=== PATIENT | male | born 1995 | race Caucasian/White ===

== ENCOUNTER 2016-11-18 19:24 | Emergency (ER) | payer MEDICAID, OTHER ==
[~2016-11-18] VITALS: Ht 170.2 cm; Wt 68.0 kg
[2016-11-18 19:25] VITALS: BP 132/83; PULSE 94; RESP 14; TEMP 98.2; O2SAT 98
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
== END 2016-11-18 21:40 | disposition home or self-care (01) ==
LOC: NEPB 19:24
DX: S80.12XA Contusion of left lower leg, initial encounter (principal); V09.20XA Pedestrian injured in traffic accident involving unspecified motor vehicles, initial encounter; Y93.89 Activity, other specified; Y92.410 Unspecified street and highway as the place of occurrence of the external cause
CPT/HCPCS: 73590; 99283; E0113

== ENCOUNTER 2016-11-22 18:31 | Emergency (ER) | payer MEDICAID, OTHER ==
[~2016-11-22] VITALS: Ht 170.2 cm; Wt 74.0 kg
[2016-11-22 18:33] VITALS: BP 147/79; PULSE 116; RESP 20; TEMP 98; O2SAT 97
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
[2016-11-22] MEDS ORDERED: CYCL1TAB29 PO (19:28)
[2016-11-22] MEDS ORDERED: ACETAMINOPHEN 500 MG CPLT PO ONE (19:30)
[2016-11-22] MEDS ORDERED: CYCLOBENZAPRINE HCL 10 MG TAB PO ONE (19:30)
== END 2016-11-22 20:09 | disposition home or self-care (01) ==
LOC: NEPB 18:31
DX: S80.12XA Contusion of left lower leg, initial encounter (principal); J45.909 Unspecified asthma, uncomplicated; V89.2XXD Person injured in unspecified motor-vehicle accident, traffic, subsequent encounter
CPT/HCPCS: 99283

== ENCOUNTER 2016-12-28 15:12 | Emergency (ER) | payer MEDICAID ==
[~2016-12-28 15:12] MED LIST: CYCL1TAB29 PO
[2016-12-28 15:13] VITALS: BP 137/79; PULSE 97; RESP 16; TEMP 98.4; O2SAT 97
== END 2016-12-28 17:05 | disposition left against medical advice (07) ==
LOC: NED 15:12
DX: Z53.21 Procedure and treatment not carried out due to patient leaving prior to being seen by health care provider (principal)
CPT/HCPCS: 99281

== ENCOUNTER 2017-01-04 19:26 | Emergency (ER) | payer MEDICAID ==
[~2017-01-04] VITALS: Ht 170.2 cm; Wt 72.0 kg
[2017-01-04] MEDS ORDERED: SODIUM CHLOR 0.9% 1000 ML INJ 1,000 ML IV SCH (19:29)
[2017-01-04 19:30] VITALS: BP 138/90; PULSE 98; RESP 16; TEMP 98.4; O2SAT 98
[2017-01-04] MEDS ORDERED: traMADol HCL 50 MG TAB PO ONE (19:30)
[2017-01-04] MEDS ORDERED: METOCLOPRAMIDE HCL 10 MG/2 ML VIAL IV PUSH ONE (19:30)
[2017-01-04] MEDS ORDERED: SODIUM CHLORIDE 0.9% FLUSH 5 ML FLUSH IVF PRN (19:30)
[2017-01-04 19:34] VITALS: O2SAT 98
[2017-01-04 20:01] LABS: AUTOMATED NEUTROPHIL # 7.5 TH/MM3 (1.8-7.7); BASOPHIL % 0.2 % (0.0-2.0); EOSINOPHIL # 0.4 TH/MM3 (0-0.4); EOSINOPHIL % 3.6 % (0.0-4.0); HEMATOCRIT 46.3 % (39.0-51.0); HEMO FLAGS DIFF FINAL; LYMPH % 23.8 % (9.0-44.0); LYMPHOCYTE # 2.7 TH/MM3 (1.0-4.8); MEAN CELL VOLUME 84.2 FL (80.0-100.0); MEAN CORPUSCULAR HEMOGLOBIN 28.7 PG (27.0-34.0); MEAN CORPUSCULAR HGB CONC 34.1 % (32.0-36.0); MONO % 6.8 % (0.0-8.0); NEUT % 65.6 % (16.0-70.0); PLATELET COUNT 177 TH/MM3 (150-450); RED CELL DISTRIBUTION WIDTH 13.4 % (11.6-17.2); WHITE BLOOD COUNT 11.5 TH/MM3 (4.0-11.0)
[2017-01-04 20:13] LABS: ALT (GPT) 18 U/L (9-52); ANION GAP 8 MEQ/L (5-15); AST (GOT) 12 U/L (15-39); BICARBONATE 28.3 MEQ/L (21.0-32.0); BLOOD UREA NITROGEN 14 MG/DL (7-18); CHLORIDE 104 MEQ/L (98-107); GLOMERULAR FILTRATION RATE 99 ML/MIN (>89); POTASSIUM 3.5 MEQ/L (3.5-5.1); SODIUM (NA) 140 MEQ/L (136-145)
[2017-01-04 20:17] LABS: APTT (PATIENT) 28.7 SEC (24.3-30.1)
[2017-01-04 20:24] LABS: ACETAMINOPHEN 2.6 MCG/ML (10.0-30.0); ALKALINE PHOSPHATASE 76 U/L (45-117); TOTAL BILIRUBIN ADULT 0.5 MG/DL (0.2-1.0)
[2017-01-04 20:43] LABS: AMPHETAMINE, URINE NEG (NEG); BARBITURATES, URINE NEG (NEG); COCAINE, URINE NEG (NEG)
[2017-01-04 20:59] LABS: BLOOD, URINE NEG (NEG); GLUCOSE,URINE NEG (NEG); KETONE, URINE NEG (NEG); MUCUS URINE FEW /lpf (OCC); NITRITE,URINE NEG (NEG); PH, URINE 5.5 (5.0-8.5); URINE COLOR YELLOW (YELLW/STRAW)
[2017-01-04 21:04] LABS: COMMENT (UR) CATH-CULT NOT IND; CULTURE IF INDICATED CATH CULTURE NOT IND
--- NOTE | 2017-01-04 21:09 | RADRPT ---
EXAM DATE/TIME: 01/04/2017 20:55 [facility] COMPARISON: No previous studies available for comparison. INDICATIONS : Altered mental status. RADIATION DOSE: 52.63 CTDIvol (mGy) MEDICAL HISTORY : Non-responsive. SURGICAL HISTORY : Non-responsive. ENCOUNTER: Initial ACUITY: 1 day PAIN SCALE: Non-responsive LOCATION: cranial TECHNIQUE: Multiple contiguous axial images were obtained of the head. Using automated exposure control and adj ustment of the mA and/or kV according to patient size, radiation dose was kept as low as reasonably a chievable to obtain optimal diagnostic quality images. FINDINGS: CEREBRUM: The ventricles are normal for age. No evidence of midline shift, mass lesion, hemorrhage or acute in farction. No extra-axial fluid collections are seen. POSTERIOR FOSSA: The cerebellum and brainstem are intact. The 4th ventricle is midline. The cerebellopontine angle i s unremarkable. EXTRACRANIAL: The visualized portion of the orbits is intact. There is mild mucosal thickening in the ethmoidal air cells and maxillary sinuses. SKULL: The calvaria is intact. No evidence of skull fracture. CONCLUSION: Unremarkable exam. Brian Patirck MD on January 04, 2017 at 21:06 Board Certified Radiologist. This report was verified electronically.
[2017-01-04 21:13] VITALS: BP 111/59; PULSE 87; RESP 18; O2SAT 98
--- NOTE | 2017-01-04 21:46 | PD ---
HPI Chief Complaint: Headache Time Seen by Provider: 19:29 Travel History International Travel<30 days: No Contact w/Intl Traveler<30days: No Traveled to known affect area: No History of Present Illness HPI 21-year-old male brought straight back to a room apparently for being unresponsive. When I walked into the room the patient is awake and alert. He is complaining of a headache. He denies illicit drug use. Headache is frontal. He has history of blindness in his right eye. Headache is associated with photophobia. Not thunderclap in onset. No fevers or recent illness. PFSH Past Medical History ADD: Yes ADHD: Yes Asthma: Yes Bipolar Disorder: Yes Diminished Hearing: No Respiratory: Yes (ASTHMA) Immunizations Current: Yes Influenza Vaccination: Yes Past Surgical History Eye Surgery: Yes ( AN INFANT) Tonsillectomy: Yes Social History Alcohol Use: No Tobacco Use: No (VAPES) Substance Use: No Allergies-Medications (Allergen,Severity, Reaction): Coded Allergies: Blueberry (Verified Allergy, Severe, THROAT SWELLING, 01/04/17) Dust (Verified Allergy, Severe, Shortness of Breath, 01/04/17) Ibuprofen (Verified Allergy, Unknown, 01/04/17) [place] (Verified Allergy, Unknown, 01/04/17) Soy Milk (Verified Allergy, Unknown, allergy testing, 01/04/17) Reported Meds & Prescriptions Reported Meds & Active Scripts Active Flexeril (Cyclobenzaprine HCl) 10 Mg Tab 10 Mg PO TID Review of Systems Except as stated in HPI: all other systems reviewed are Neg Physical Exam Narrative GENERAL: Well-developed, well-nourished, awake, alert, covering eyes. SKIN: Warm and dry. HEAD: Atraumatic. Normocephalic. EYES: Pupils equal and round. No wandering gaze. ENT: Mucous membranes pink and moist. NECK: Trachea midline. No JVD. No nuchal rigidity. CARDIOVASCULAR: Regular rate and rhythm. RESPIRATORY: No accessory muscle use. Clear to auscultation. Breath sounds equal bilaterally. GASTROINTESTINAL: Abdomen soft, non-tender, nondistended. MUSCULOSKELETAL: No obvious deformities. No clubbing. No cyanosis. No edema. NEUROLOGICAL: Awake and alert. No obvious cranial nerve deficits. Motor grossly within normal limits. Normal speech. PSYCHIATRIC: Appropriate mood and affect; insight and judgment normal. Data Data Last Documented VS Vital Signs Date Time Temp Pulse Resp B/P Pulse Ox O2 Delivery O2 Flow Rate FiO2 01/04/17 21:13 87 18 111/59 98 Room Air 01/04/17 19:30 98.4 Orders Electrocardiogram (01/04/17 19:29) Ammonia (01/04/17 19:29) Complete Blood Count With Diff (01/04/17:29) Comprehensive Metabolic Panel (01/04/17:29) Act Partial Throm Time (Ptt) (01/04/17:29) Troponin I (01/04/17:29) Thyroid Stimulating Hormone (01/04/17:29) Urinalysis - C+S If Indicated (01/04/17:29) Blood Glucose (01/04/17:) Ecg Monitoring (01/04/17:29) Iv Access Insert/Monitor (01/04/17:29) Oximetry (01/04/17 19:29) Sodium Chloride 0.9% Flush (Ns Flush) (01/04/17 19:30) Sodium Chlor 0.9% 1000 Ml Inj (Ns 1000 M (01/04/17 19:29) Drug Screen, Random Urine (01/04/17:29) Alcohol (Ethanol) (01/04/17 19:29) Salicylates (Aspirin) (01/04/17 19:29) Tylenol (Acetaminophen) (01/04/17 19:29) Metoclopramide Inj (Reglan Inj) (01/04/17 19:30) Tramadol (Ultram) (01/04/17 19:30) Ct Brain W/O Iv Contrast(Rout) (01/04/17 ) Labs Laboratory Tests Test 01/04/17 01/04/17 19:35 20:02 White Blood Count 11.5 TH/MM3 Red Blood Count 5.50 MIL/MM3 Hemoglobin 15.8 GM/DL Hematocrit 46.3 % Mean Corpuscular Volume 84.2 FL Mean Corpuscular Hemoglobin 28.7 PG Mean Corpuscular Hemoglobin 34.1 % Concent Red Cell Distribution Width 13.4 % Platelet Count 177 TH/MM3 Mean Platelet Volume 9.4 FL Neutrophils (%) (Auto) 65.6 % Lymphocytes (%) (Auto) 23.8 % Monocytes (%) (Auto) 6.8 % Eosinophils (%) (Auto) 3.6 % Basophils (%) (Auto) 0.2 % Neutrophils # (Auto) 7.5 TH/MM3 Lymphocytes # (Auto) 2.7 TH/MM3 Monocytes # (Auto) 0.8 TH/MM3 Eosinophils # (Auto) 0.4 TH/MM3 Basophils # (Auto) 0.0 TH/MM3 CBC Comment DIFF FINAL Differential Comment Activated Partial 28.7 SEC Thromboplast Time Sodium Level 140 MEQ/L Potassium Level 3.5 MEQ/L Chloride Level 104 MEQ/L Carbon Dioxide Level 28.3 MEQ/L Anion Gap 8 MEQ/L Blood Urea Nitrogen 14 MG/DL Creatinine 0.97 MG/DL Estimat Glomerular Filtration 99 ML/MIN Rate Random Glucose 119 MG/DL Calcium Level 8.6 MG/DL Total Bilirubin 0.5 MG/DL Aspartate Amino Transf 12 U/L (AST/SGOT) Alanine Aminotransferase 18 U/L (ALT/SGPT) Alkaline Phosphatase 76 U/L Ammonia 38 MCMOL/L Troponin I LESS THAN 0.02 NG/ML Total Protein 7.4 GM/DL Albumin 4.3 GM/DL Thyroid Stimulating Hormone 0.906 uIU/ML 3rd Gen Salicylates Level LESS THAN 1.7 MG/DL Acetaminophen Level 2.6 MCG/ML Ethyl Alcohol Level LESS THAN 3 MG/DL Urine Color YELLOW Urine Turbidity CLEAR Urine pH 5.5 Urine Specific [place] 1.015 Urine Protein NEG mg/dL Urine Glucose (UA) NEG mg/dL Urine Ketones NEG mg/dL Urine Occult Blood NEG Urine Nitrite NEG Urine Bilirubin NEG Urine Urobilinogen LESS THAN 2.0 MG/DL Urine Leukocyte Esterase NEG Urine Mucus FEW /lpf Microscopic Urinalysis Comment CATH-CULT NOT IND Urine Opiates Screen NEG Urine Barbiturates Screen NEG Urine Amphetamines Screen NEG Urine Benzodiazepines Screen NEG Urine Cocaine Screen NEG Urine Cannabinoids Screen NEG MDM Medical Decision Making Medical Screen Exam Complete: Yes Emergency Medical Condition: Yes Medical Record Reviewed: Yes Differential Diagnosis Tension headache, cluster headache, migraine headache, SAH/meningitis/ encephalitis unlikely, intracranial abnormality. Narrative Course Vital signs show heart rate 87, blood pressure 111/59, pulse ox 98% on room air , oral temp of 98.4F. CBC is unremarkable. CMP is unremarkable. Cardiac enzymes are negative. Ammonia level is 38. TSH is 0.906. Urine drug screen is negative for all drugs tested. Tylenol, alcohol, and salicylate levels are negative. UA is not suggestive of UTI. CT head: Unremarkable exam. She was given a liter of normal saline IV, tramadol, and IV Reglan. He reports feeling much better. At this point I believe he is stable for discharge home with outpatient follow-up with a primary care physician this week. The patient admits that he and his girlfriend are homeless and does not have a place to stay tonight. I will try to get bilingual patient support caseworker involved to assist him with this. He was informed on when to return to the emergency department. He verbalizes understanding and agreement with plan. Diagnosis Primary Impression: Cephalgia Qualified Code: R51 - Acute nonintractable headache, unspecified headache type Referrals: Primary Care Physician 3 days Additional Instructions: Follow-up with a primary care physician this week. Return to the emergency department for worsening symptoms or any other concerns. Disposition: 01 DISCHARGE HOME Condition: Stable Osmany Harper MD Jan 04, 2017 21:45
[2017-01-05 07:35] VITALS: BP 109/63
--- NOTE | 2017-01-06 07:27 | EKG ---
Date Performed: 01/04/2017 Time Performed: 17:35:54 PTAGE: 21 years EKG: Sinus rhythm POSSIBLE RIGHT VENTRICULAR CONDUCTION DELAY J POINT ELEVATION LIKELY REPRESENTS EARLY REPOLARIZATION BORDERLINE ECG NO PREVIOUS TRACING DOCTOR: Richard Damico Interpretating Date/Time 01/06/2017 07:26:10
== END 2017-01-05 07:36 | disposition home or self-care (01) ==
LOC: NEPA 19:26
DX: R51 Headache (principal); H54.41 Blindness, right eye, normal vision left eye; R94.31 Abnormal electrocardiogram [ECG] [EKG]
CPT/HCPCS: 70450; 80053; 80307; 81001; 82140; 84443; 84484; 85025; 85730; 93005; 96361; 96374; 99284; J2765; J7030

== ENCOUNTER 2017-05-06 08:14 | Emergency (ER) | payer MEDICAID ==
[2017-05-06 08:17] VITALS: BP 141/84; PULSE 81; RESP 16; TEMP 98; O2SAT 98
--- NOTE | 2017-05-06 08:29 | PD ---
HPI Chief Complaint: Cold / Flu Symptoms Time Seen by Provider: 08:28 Travel History International Travel<30 days: No Contact w/Intl Traveler<30days: No Traveled to known affect area: No History of Present Illness HPI 22-year-old male presents to the the emergency department for evaluation of sinus congestion that began yesterday. He states when he woke up this morning he had to cough to clear his throat. States he believes he has a sinus infection. Has not attempted any [id number] remedies. Patient denies a chest x-ray intravenous. No difficulty breathing. No fever. No other symptoms to report. History Past Medical Histgory Medical History: Denies Significant Hx Social History Alcohol Use: No Tobacco Use: No (VAPES) Allergies-Medications (Allergen,Severity, Reaction): Coded Allergies: Blueberry (Verified Allergy, Severe, THROAT SWELLING, 01/04/17) Dust (Verified Allergy, Severe, Shortness of Breath, 01/04/17) Ibuprofen (Verified Allergy, Unknown, 01/04/17) [place] (Verified Allergy, Unknown, 01/04/17) Soy Milk (Verified Allergy, Unknown, allergy testing, 01/04/17) Reported Meds & Prescriptions Reported Meds & Active Scripts Active Flexeril (Cyclobenzaprine HCl) 10 Mg Tab 10 Mg PO TID Review of Systems Except as stated in HPI: all other systems reviewed are Neg Physical Exam Narrative GENERAL: Well-nourished, well-developed male patient in no acute distress SKIN: Focused skin assessment warm/dry. HEAD: Normocephalic. Atraumatic EYES: No scleral icterus. No injection or drainage. EOMI. PERRLA ENT: Mucosa pink and moist. No erythema or exudates. No uvular edema. No uvular , palatal, or tonsillar deviation. Airway patent. Nasal turbinates appear inflamed without nasal blood, purulent drainage or septal hematoma. NECK: Supple, trachea midline. No JVD or lymphadenopathy. CARDIOVASCULAR: Regular rate and rhythm without murmurs, gallops, or rubs. RESPIRATORY: Breath sounds equal bilaterally. No accessory muscle use. GASTROINTESTINAL: Abdomen soft, non-tender, nondistended. MUSCULOSKELETAL: No cyanosis, or edema. BACK: Nontender without obvious deformity. No CVA tenderness. Data Data Last Documented VS Vital Signs Date Time Temp Pulse Resp B/P Pulse Ox O2 Delivery O2 Flow Rate FiO2 7/13/17 08:17 98.0 81 16 141/84 98 [facility] Medical Screen Exam Complete: Yes Emergency Medical Condition: No Differential Diagnosis sinusitis Narrative Course 22-year-old male presents to the emergency department for evaluation. Patient appears without distress. He does have moderately inflamed nasal turbinates. He does sound congested. Lung sounds are clear. There are no other acute findings on exam. This is likely a sinusitis weathered is allergic or viral, I counseled the patient on [id number] remedies. He is encouraged to seek primary care evaluation. At this time there are no urgent or emergent needs for medical intervention identified. A medical screening exam was performed: At the time of evaluation the presenting medical condition was determined not to be of an emergent nature. The patient was given the option of receiving additional care, but declined. Patient was given options for additional community resources from which to obtain care. The Patient Has Been advised to seek medical attention for their presenting complaint. The patient has been advised to return to the ER at any time if an emergent condition develops. Primary Impression: Encounter for medical screening examination Additional Impression: Sinusitis Qualified Code: J32.1 - Frontal sinusitis, unspecified chronicity Condition: Stable Charleen Salinas May 06, 2017 08:29
== END 2017-05-06 08:39 | disposition left against medical advice (07) ==
LOC: NEPK 08:14
DX: J32.9 Chronic sinusitis, unspecified (principal); R05 Cough
CPT/HCPCS: 99281

== ENCOUNTER 2017-08-16 04:18 | Emergency (ER) | payer MEDICAID ==
[~2017-08-16] VITALS: Ht 170.2 cm; Wt 75.0 kg
[2017-08-16 04:20] VITALS: BP 142/94; PULSE 112; RESP 22; TEMP 98.3; O2SAT 98
[2017-08-16 04:35] VITALS: BP 131/80; PULSE 98; RESP 22; O2SAT 98
--- NOTE | 2017-08-16 05:16 | PD ---
HPI Chief Complaint: Respiratory Symptoms Time Seen by Provider: 05:03 Travel History International Travel<30 days: No Contact w/Intl Traveler<30days: No Traveled to known affect area: No History of Present Illness HPI The patient is a 22 year old male who presents to the [facility] emergency department with a history of cough congestion that began at 4PM. At 10PM, while preparing to go to bed he began to have nausea without vomiting. He has had intermittent shortness of breath, chest pain in the center of his chest. He reports that he felt like the room was spinning and that he was drunk however he does not drink. His nasal discharge was yellow in color. He denies having any known fevers however he has had chills. He has a plugged sensation in his ears. The patient denies any history of neck pain, abdominal pain, vomiting, dysuria, urinary urgency, or other neurologic symptoms. He reports that he has had some urinary frequency. PFSH Past Medical History Narrative Medical The patient's past medical history is significant forvisual deficit, asthma, adhd, bipolar ADD: Yes ADHD: Yes Asthma: Yes Bipolar Disorder: Yes Diminished Hearing: No Respiratory: Yes (ASTHMA) Immunizations Current: Yes Tetanus Vaccination: Unknown Influenza Vaccination: No Past Surgical History Narrative Surgical The patient's past surgical history is significant for eye surgery x2 as a child. Eye Surgery: Yes ( AN ) Tonsillectomy: Yes Social History Alcohol Use: No Tobacco Use: Yes (1-2 cigarettes per day.) Substance Use: No Allergies-Medications (Allergen,Severity, Reaction): Coded Allergies: blueberry (Unverified Allergy, Severe, THROAT SWELLING, 08/16/17) house dust (Unverified Allergy, Severe, Shortness of Breath, 08/16/17) ibuprofen (Unverified Allergy, Unknown, 08/16/17) lithium (Unverified Allergy, Unknown, 08/16/17) soy (Unverified Allergy, Unknown, allergy testing, 08/16/17) Reported Meds & Prescriptions Reported Meds & Active Scripts Active Meclizine (Meclizine HCl) 12.5 Mg Tab 12.5 Mg PO TID PRN Proair Respiclick Inh (Albuterol Sulfate) 90 Mcg/Act Aerp 2 Puff INH Q4-6H PRN Review of Systems Except as stated in HPI: all other systems reviewed are Neg General / Constitutional: No: Fever Eyes: No: Visual changes HENT: No: Headaches Cardiovascular: No: Chest Pain or Discomfort Respiratory: No: Shortness of Breath Gastrointestinal: Positive: Nausea, No: Vomiting, Diarrhea, Abdominal Pain, Changes in Bowel Habits, Indigestion, Loss of Appetite Genitourinary: No: Dysuria Musculoskeletal: No: Pain Skin: No Rash Neurologic: No: Weakness Psychiatric: No: Depression Endocrine: No: Polydipsia Hematologic/Lymphatic: No: Easy Bruising Physical Exam Narrative General: The patient is well-developed well-nourished male in no acute distress. Head and Neck exam: Head is normocephalic atraumatic. Eyes: The patient has a disconjugate gaze. The patient has vision impairment in his history. The patient has mild conjunctival injection bilaterally with tearing. No purulent discharge. Ears: Cerumen impactions are noted bilaterally. Nose: Midline septum with erythematous edematous nasal mucosa and clear nasal discharge. Mouth: Dentition unremarkable. Moist mucus membranes. Posterior oropharynx is not erythematous. No tonsillar hypertrophy. Uvula midline. Airway patent. Neck: No palpable lymphadenopathy. No nuchal rigidity. No thyromegaly. Cardiovascular: Regular rate and rhythm without murmurs, gallops, or rubs. No pulse deficit to the extremities. Lungs: Clear to auscultation bilaterally. No wheezes, rhonchi, or rales. Abdomen: Soft, without tenderness to palpation in all 4 quadrants of the abdomen. No guarding, rebound, or rigidity. Normal bowel sounds are audible. No tenderness on palpation of McBurney's point. Extremities: No clubbing, cyanosis, or edema. 2+ pulses in all 4 extremities. No calf tenderness on palpation. Back: No costovertebral angle tenderness to palpation. Neurologic Exam: Cranial nerves 2-12 were intact on exam except for extraocular motion testing which the patient has a history of having visual impairment, as well as disconjugate gaze. Strength is 5/5 in all 4 extremities. No sensory deficits noted. No dysdiadochokinesis. Good finger to nose and Heel to bell bilaterally. Skin Exam: No rash noted. Intact skin that is warm and dry. Data Data Last Documented VS Vital Signs Date Time Temp Pulse Resp B/P (MAP) Pulse Ox O2 Delivery O2 Flow Rate FiO2 08/16/17 07:00 74 18 109/69 (82) 98 Room Air 08/16/17 04:20 98.3 Orders Orders Complete Blood Count With Diff (08/16/17 05:31) Comprehensive Metabolic Panel (08/16/17 05:31) Creatine Kinase (Cpk) (08/16/17 05:31) Ckmb (Isoenzyme) Profile (08/16/17 05:31) Troponin I (08/16/17 05:31) Lipase (08/16/17 05:31) Magnesium (Mg) (08/16/17 05:31) Chest, Single Ap (08/16/17 05:31) Iv Access Insert/Monitor (08/16/17 05:31) Ecg Monitoring (08/16/17 05:31) Oximetry (08/16/17 05:31) Ear Irrigation (08/16/17 05:31) Ondansetron Inj (Zofran Inj) (08/16/17 05:45) Ondansetron Inj (Zofran Inj) (08/16/17 05:45) Ed Discharge Order (08/16/17 07:12) Electrocardiogram (08/16/17 ) Labs Laboratory Tests Test 08/16/17 04:30 White Blood Count 13.4 TH/MM3 Red Blood Count 5.57 MIL/MM3 Hemoglobin 16.0 GM/DL Hematocrit 47.7 % Mean Corpuscular Volume 85.6 FL Mean Corpuscular Hemoglobin 28.8 PG Mean Corpuscular Hemoglobin Concent 33.6 % Red Cell Distribution Width 13.8 % Platelet Count 224 TH/MM3 Mean Platelet Volume 9.7 FL Neutrophils (%) (Auto) 59.1 % Lymphocytes (%) (Auto) 29.0 % Monocytes (%) (Auto) 7.0 % Eosinophils (%) (Auto) 4.5 % Basophils (%) (Auto) 0.4 % Neutrophils # (Auto) 7.9 TH/MM3 Lymphocytes # (Auto) 3.9 TH/MM3 Monocytes # (Auto) 0.9 TH/MM3 Eosinophils # (Auto) 0.6 TH/MM3 Basophils # (Auto) 0.1 TH/MM3 CBC Comment DIFF FINAL Differential Comment Blood Urea Nitrogen 14 MG/DL Creatinine 0.78 MG/DL Random Glucose 88 MG/DL Total Protein 7.8 GM/DL Albumin 4.4 GM/DL Calcium Level 9.5 MG/DL Magnesium Level 1.7 MG/DL Alkaline Phosphatase 71 U/L Aspartate Amino Transf (AST/SGOT) 18 U/L Alanine Aminotransferase (ALT/SGPT) 22 U/L Total Bilirubin 0.3 MG/DL Sodium Level 139 MEQ/L Potassium Level 3.5 MEQ/L Chloride Level 102 MEQ/L Carbon Dioxide Level 25.8 MEQ/L Anion Gap 11 MEQ/L Estimat Glomerular Filtration Rate 126 ML/MIN Total Creatine Kinase 92 U/L Troponin I LESS THAN 0.02 NG/ML Lipase 129 U/L [facility] Medical Decision Making Medical Screen Exam Complete: Yes Emergency Medical Condition: Yes Medical Record Reviewed: Yes Interpretation(s) Last Impressions Chest X-Ray 08/16/1731 Signed Impressions: Service Date/Time: Wednesday, August 16, 2017 05:45 - CONCLUSION: No acute disease. Sanchez Rodríguez MD Differential Diagnosis Cerumen impaction, versus labyrinthitis, versus benign positional vertigo. Narrative Course During the course of the patients emergency department visit, the patients history, examination, and differential diagnosis were reviewed with the patient. The patient was placed on a cartography technician with oximetry and frequent blood pressure monitoring. The patient had IV access obtained and blood work sent for analysis. The patient had bilateral ears irrigated as the patient's decreased hearing and dizziness is likely related to bilateral cerumen impactions. The patients laboratory studies were reviewed and remarkable for CBC was remarkable for white count of 13, with no left shift, CMP was within normal limits, cardiac enzymes were within normal limits. Lipase 129. Radiology studies were reviewed and remarkable for a chest x-ray that shows no acute cardiopulmonary disease. The patient will be discharged home with a prescription for a refill of a pro- air rescue inhaler. The patient's symptoms are most consistent with an upper respiratory infection causing an exacerbation of his asthma. The patient is instructed to avoid smoking. The patient is resting comfortably and feels better, is alert and in no distress. The patients results and examination findings were discussed with the patient. The repeat examination is unremarkable and benign. The history, exam, diagnostic testing, and current condition do not suggest any significant pathology to warrant further testing, continued ED treatment, admission, or surgical evaluation at this point. The vital signs have been stable. The patient does not have uncontrollable pain, intractable vomiting, or other significant symptoms. The patient's condition is stable and appropriate for discharge. The patient will pursue further outpatient evaluation with a primary care physician or other designated or consulting physician as indicated in the discharge instructions. The patient expressed understanding and was agreeable with this plan. Diagnosis Primary Impression: Upper respiratory infection Qualified Codes: J06.9 - Acute upper respiratory infection, unspecified Additional Impression: Cerumen impaction Qualified Codes: H61.23 - Impacted cerumen, bilateral Referrals: Donis Regalado MD 1 week Patient Instructions: Cerumen Impaction (ED), General Instructions, Upper Respiratory Infection (ED), Vertigo (ED) Med/Other Pt SpecificInfo: Prescription(s) given Scripts Meclizine (Meclizine) 12.5 Mg Tab 12.5 MG PO TID Y for VERTIGO, #12 TAB 0 Refills Prov: Tiff Krishna MD 08/16/17 Albuterol Powder Inh (Proair Respiclick Inh) 90 Mcg/Act Aerp 2 PUFF INH Q4-6H Y for SHORTNESS OF BREATH, #1 INHALER 0 Refills Prov: Tiff Krishna MD 08/16/17 Disposition: 01 DISCHARGE HOME Condition: Stable Tiff Krishna MD Aug 16, 2017 05:16
[2017-08-16] MEDS ORDERED: ALBU1AER5 INH (05:35)
[2017-08-16] MEDS ORDERED: ONDANSETRON HCL 4 MG/2 ML VIAL IV ONE ×2 (05:45)
[2017-08-16 06:05] LABS: AUTOMATED NEUTROPHIL # 7.9 TH/MM3 (1.8-7.7); BASOPHIL # 0.1 TH/MM3 (0-0.2); BASOPHIL % 0.4 % (0.0-2.0); EOSINOPHIL # 0.6 TH/MM3 (0-0.4); EOSINOPHIL % 4.5 % (0.0-4.0); HEMATOCRIT 47.7 % (39.0-51.0); LYMPHOCYTE # 3.9 TH/MM3 (1.0-4.8); MEAN CELL VOLUME 85.6 FL (80.0-100.0); MEAN CORPUSCULAR HEMOGLOBIN 28.8 PG (27.0-34.0); MEAN CORPUSCULAR HGB CONC 33.6 % (32.0-36.0); MEAN PLATELET VOLUME 9.7 FL (7.0-11.0); MONOCYTE # 0.9 TH/MM3 (0-0.9); NEUT % 59.1 % (16.0-70.0); PLATELET COUNT 224 TH/MM3 (150-450); RED BLOOD COUNT 5.57 MIL/MM3 (4.50-5.90); RED CELL DISTRIBUTION WIDTH 13.8 % (11.6-17.2); WHITE BLOOD COUNT 13.4 TH/MM3 (4.0-11.0)
--- NOTE | 2017-08-16 06:09 | RADRPT ---
EXAM DATE/TIME: 08/16/2017 05:45 [facility] COMPARISON: CHEST SINGLE AP, June 30, 2015, 20:59. INDICATIONS : Short of breath. MEDICAL HISTORY : None. SURGICAL HISTORY : None. ENCOUNTER: Initial ACUITY: 1 day PAIN SCORE: 0/10 LOCATION: Bilateral chest FINDINGS: A single view of the chest demonstrates the lungs to be symmetrically aerated without evidence of mas s, infiltrate or effusion. The cardiomediastinal contours are unremarkable. Osseous structures are intact. CONCLUSION: No acute disease. Sanchez Rodríguez MD on August 16, 2017 at 6:07 Board Certified Radiologist. This report was verified electronically.
[2017-08-16 06:37] LABS: ALT (GPT) 22 U/L (12-78)
[2017-08-16 06:53] LABS: ALBUMIN 4.4 GM/DL (3.4-5.0); ALKALINE PHOSPHATASE 71 U/L (45-117); AST (GOT) 18 U/L (15-37); BICARBONATE 25.8 MEQ/L (21.0-32.0); BLOOD UREA NITROGEN 14 MG/DL (7-18); CALCIUM 9.5 MG/DL (8.5-10.1); CHLORIDE 102 MEQ/L (98-107); CREATININE 0.78 MG/DL (0.60-1.30); GLOMERULAR FILTRATION RATE 126 ML/MIN (>89); GLUCOSE,RANDOM 88 MG/DL (74-106); LIPASE 129 U/L (73-393); MAGNESIUM 1.7 MG/DL (1.5-2.5); SODIUM (NA) 139 MEQ/L (136-145); TOTAL BILIRUBIN ADULT 0.3 MG/DL (0.2-1.0); TOTAL PROTEIN 7.8 GM/DL (6.4-8.2); TROPONIN I LESS THAN 0.02 NG/ML (0.02-0.05)
[2017-08-16 07:00] VITALS: BP 109/69; PULSE 74; RESP 18; O2SAT 98
[2017-08-16] MEDS ORDERED: MECL12.574 PO (07:17)
--- NOTE | 2017-08-16 11:09 | EKG ---
Date Performed: 08/16/2017 Time Performed: 04:38:02 PTAGE: 22 years EKG: Sinus rhythm POSSIBLE LEFT ATRIAL ENLARGEMENT POSSIBLE RIGHT VENTRICULAR CONDUCTION DELAY J point elevation likel y represents early repolarization Compared to prior tracing no significant change BORDERLINE ECG PREVIOUS TRACING : 01/04/2017 17.35 DOCTOR: Richard Damico Interpretating Date/Time 08/16/2017 11:08:47
== END 2017-08-16 08:17 | disposition home or self-care (01) ==
LOC: NEPC 04:18
DX: J06.9 Acute upper respiratory infection, unspecified (principal); H61.23 Impacted cerumen, bilateral; R07.9 Chest pain, unspecified; J45.909 Unspecified asthma, uncomplicated; F17.210 Nicotine dependence, cigarettes, uncomplicated; Z79.899 Other long term (current) drug therapy
CPT/HCPCS: 71010; 80053; 82550; 83690; 83735; 84484; 85025; 93005; 96374; 99284; J2405

== ENCOUNTER 2017-11-24 12:26 | Emergency (ER) | payer MEDICAID ==
[~2017-11-24] VITALS: Ht 170.2 cm; Wt 72.8 kg
[~2017-11-24 12:26] MED LIST changes: +ALBU1AER5 INH; -CYCL1TAB29 PO; +MECL12.574 PO
[2017-11-24 12:44] VITALS: BP 130/66; PULSE 104; RESP 16; TEMP 98.6; O2SAT 97
--- NOTE | 2017-11-24 13:06 | PD ---
HPI Chief Complaint: Eye Problems/Injury Time Seen by Provider: 12:55 Travel History International Travel<30 days: No Contact w/Intl Traveler<30days: No Traveled to known affect area: No History of Present Illness HPI This 22-year-old male says he woke up this morning and felt like his eye was swollen. He's noted blurred vision just gotten progressively worse to the point where he is now not able to see out of his left eye. He has a history of nystagmus and optic nerve hypoplasia. He says he grew up in the [facility] and had eye surgeries there was a child he has recently moved here and does not have a local tube cleaner. He says that normally with correction he gets to about 20/65 and his left eye and his right eye 20/70. He says he is barely able to drive with correction. His has not had any glasses for several months. He does not use any eyedrops PFSH Past Medical History ADD: Yes ADHD: Yes Asthma: Yes Bipolar Disorder: Yes Diminished Hearing: No Respiratory: Yes (ASTHMA) Immunizations Current: Yes Past Surgical History Eye Surgery: Yes ( AN ) Tonsillectomy: Yes Social History Alcohol Use: No Tobacco Use: Yes (1-2 cigarettes per day.) Substance Use: No Allergies-Medications (Allergen,Severity, Reaction): Coded Allergies: blueberry (Unverified Allergy, Severe, THROAT SWELLING, 11/24/17) house dust (Unverified Allergy, Severe, Shortness of Breath, 11/24/17) ibuprofen (Unverified Allergy, Unknown, 11/24/17) lithium (Unverified Allergy, Unknown, 11/24/17) soy (Unverified Allergy, Unknown, allergy testing, 11/24/17) Reported Meds & Prescriptions Reported Meds & Active Scripts Active Meclizine (Meclizine HCl) 12.5 Mg Tab 12.5 Mg PO TID PRN Proair Respiclick Inh (Albuterol Sulfate) 90 Mcg/Act Aerp 2 Puff INH Q4-6H PRN Review of Systems General / Constitutional: No: Fever, Chills Eyes: Positive: Blindness HENT: No: Headaches, Vertigo Cardiovascular: No: Chest Pain or Discomfort, Palpitations Respiratory: No: Cough, Shortness of Breath Gastrointestinal: No: Vomiting, Diarrhea Genitourinary: No: Urgency, Frequency Musculoskeletal: No: Myalgias, Arthralgias Skin: No Rash, No Itching Psychiatric: No: Anxiety Physical Exam Narrative GENERAL: Well-developed male SKIN: Focused skin assessment warm/dry. HEAD: Atraumatic. Normocephalic. EYES: Pupils equal and round. Pupils are constricted bilaterally. There is some conjunctival injection. He has a tendency to position the eyes vertically. He says there is no light perception in the left eye. The right eye does have light perception. He says the right eye vision is at baseline. Intraocular pressure is 14 bilaterally. Endoscopic exam is limited due to the constriction ENT: No nasal bleeding or discharge. Mucous membranes pink and moist. NECK: Trachea midline. No JVD. CARDIOVASCULAR: Regular rate and rhythm. No murmur appreciated. RESPIRATORY: No accessory muscle use. Clear to auscultation. Breath sounds equal bilaterally. GASTROINTESTINAL: Abdomen soft, non-tender, nondistended. Hepatic and splenic margins not palpable. MUSCULOSKELETAL: No obvious deformities. No clubbing. No cyanosis. No edema. NEUROLOGICAL: Awake and alert. No obvious cranial nerve deficits. Motor grossly within normal limits. Normal speech. PSYCHIATRIC: Appropriate mood and affect; insight and judgment normal. Data Data Last Documented VS Vital Signs Date Time Temp Pulse Resp B/P (MAP) Pulse Ox O2 Delivery O2 Flow Rate FiO2 11/24/17 12:44 98.6 104 16 130/66 (87) 97 Orders Orders Proparacaine 0.5% Opth Soln (Alcaine 0.5 (11/24/17 13:15) Complete Blood Count With Diff (11/24/17 14:01) Basic Metabolic Panel (Bmp) (11/24/17 14:01) Sodium Chlor 0.9% 1000 Ml Inj (Ns 1000 M (11/24/17 14:15) MDM Medical Decision Making Medical Screen Exam Complete: Yes Emergency Medical Condition: Yes Medical Record Reviewed: Yes Differential Diagnosis Differential includes vitreous hemorrhage, glaucoma, progressive vision loss Narrative Course Intraocular pressure is normal bilaterally. I have discussed the case with Dr. Hampton in [place] and we will send the patient to the emergency department at [facility]. Diagnosis Primary Impression: Visual loss, left eye Disposition: 70 TRANSFER TO OTHER FACILITY Condition: Stable Jaquan Peace MD Nov 24, 2017 13:06
[2017-11-24] MEDS ORDERED: PROPARACAINE HCL 0.5% OPHT SOLN 15 ML BTL EACH EYE ONE (13:15)
[2017-11-24] MEDS ORDERED: SODIUM CHLOR 0.9% 1000 ML INJ 1,000 ML IV SCH (14:15)
[2017-11-24 15:04] LABS: AUTOMATED NEUTROPHIL # 5.8 TH/MM3 (1.8-7.7); BASOPHIL % 0.4 % (0.0-2.0); EOSINOPHIL # 0.4 TH/MM3 (0-0.4); EOSINOPHIL % 4.1 % (0.0-4.0); LYMPH % 21.7 % (9.0-44.0); LYMPHOCYTE # 1.9 TH/MM3 (1.0-4.8); MEAN CELL VOLUME 84.9 FL (80.0-100.0); MEAN CORPUSCULAR HEMOGLOBIN 27.8 PG (27.0-34.0); MEAN CORPUSCULAR HGB CONC 32.7 % (32.0-36.0); MEAN PLATELET VOLUME 8.9 FL (7.0-11.0); MONO % 7.3 % (0.0-8.0); MONOCYTE # 0.6 TH/MM3 (0-0.9); NEUT % 66.5 % (16.0-70.0); PLATELET COUNT 195 TH/MM3 (150-450); RED BLOOD COUNT 5.78 MIL/MM3 (4.50-5.90); RED CELL DISTRIBUTION WIDTH 13.1 % (11.6-17.2); WHITE BLOOD COUNT 8.7 TH/MM3 (4.0-11.0)
[2017-11-24 15:15] LABS: BICARBONATE 26.7 MEQ/L (21.0-32.0); CALCIUM 8.7 MG/DL (8.5-10.1)
[2017-11-24 15:19] LABS: CREATININE 0.68 MG/DL (0.60-1.30)
[2017-11-24 17:54] VITALS: BP 119/62
== END 2017-11-24 18:08 | disposition short-term general hospital (02) ==
LOC: PHEFT 12:26 → PHED 18:08
DX: H54.62 Unqualified visual loss, left eye, normal vision right eye (principal); J45.909 Unspecified asthma, uncomplicated; F17.210 Nicotine dependence, cigarettes, uncomplicated
CPT/HCPCS: 80048; 85025; 96360; 96361; 99285; J7030